=== PATIENT | female | born 1995 | race Caucasian/White ===

== ENCOUNTER 2025-08-23 13:14 | Emergency (ER) | payer MEDICAID ==
[~2025-08-23] VITALS: Ht 165.1 cm; Wt 85.0 kg
[2025-08-23 13:23] VITALS: O2SAT 100
[2025-08-23] MEDS: ONDANSETRON 4MG ODT PO ONE (14:48)
[2025-08-23] MEDS: FAMOTIDINE 20MG TABLET PO ONE (14:48)
[2025-08-23] MEDS: MAGNESIUM/ALUMINUM HYDROXIDE/SIMETHICONE 30ML UDC PO ONE (14:48)
[2025-08-23 14:52] LABS: BASOPHILS % 0.3 % (0.0-2.0); EOSINOPHILS % 0.3 % (0.0-5.0); HEMATOCRIT. 38.9 % (36.0-48.0); HEMOGLOBIN. 12.8 g/dL (12.0-16.0); LYMPHOCYTES % 10.8 % (20.0-50.0); MEAN PLATELET VOLUME 7.4 fl (7.4-10.4); MONOCYTES % 3.4 % (2.0-8.0); NEUTROPHILS % 85.2 % (40.0-76.0); PLATELET 335 x1000/uL (130-400); RED BLOOD CELL COUNT 4.77 mill/uL (4.2-5.4); RED CELL DISTRIBUTION WIDTH 14.2 % (11.6-14.6)
[2025-08-23 15:10] LABS: CREATININE 0.7 mg/dL (0.6-1.0); TROPONIN I HIGH SENSITIVITY < 4 ng/L (3.0-34); UREA NITROGEN BLOOD 6 mg/dL (9-23)
[2025-08-23 15:11] LABS: HCG SCREEN NEGATIVE
[2025-08-23 15:12] LABS: ASPARTATE AMINOTRANSFERASE 18 IU/L (<34); BILIRUBIN DIRECT < 0.1 mg/dL (<=3.0); BILIRUBIN TOTAL 0.3 mg/dL (0.1-1.0); PROTEIN TOTAL 7.7 g/dL (6.0-8.3)
[2025-08-23] MEDS: KETOROLAC 30MG/ML VIAL IM ONE (15:28)
[2025-08-23] MEDS ORDERED: FAMO-135 MT (17:11)
[2025-08-23] MEDS ORDERED: MAG355OR21 MT (17:11)
[2025-08-23] MEDS: ONDANSETRON HCL 4MG/2ML INJ IV ONE (17:41)
[2025-08-23] MEDS: OXYCODONE HCL/ACETAMINOPHEN 5/325MG TABLET PO NR (17:41)
[2025-08-23] MEDS: DICYCLOMINE HCL 10MG/ML 2ML VIAL IM ONE (17:41)
[2025-08-23] MEDS: SODIUM CHLORIDE 0.9% 250 ML IV NR (17:42)
[2025-08-23] MEDS: MORPHINE SULFATE 4 MG/ML INJ (FOR IV/IM USE) IV ONE (18:34)
[2025-08-23 18:47] VITALS: BP 150/72; PULSE 68; RESP 18; TEMP 36.9; O2SAT 98
[2025-08-23] MEDS ORDERED: IOHEXOL-350 100 ML BOTTLE ONE (20:15)
== END 2025-08-23 18:49 | disposition home or self-care (01) ==
LOC: ER 13:14
DX: K80.20 Calculus of gallbladder without cholecystitis without obstruction (principal); I10 Essential (primary) hypertension; Z98.891 History of uterine scar from previous surgery
CPT/HCPCS: 80076; 80048; 81025; 80320; 84703; 83690; 85025; 85379; 84484; 36415; 71045; 71275; 76705; 93005; 96361; 96372; 96374; 96375; 99285; Q9967; Q0162; J0500; J2405; J2270; Z7610 ×2; G0480